=== PATIENT | female | born 1960 | race Caucasian/White ===

== ENCOUNTER 2016-05-07 10:13 | Outpatient (RCR) | payer OTHER ==
[2016-04-10 10:31] LABS: BASOPHILS % (AUTO) 1 % (0-10); EOSINOPHILS % (AUTO) 1 % (0-10); LYMPHOCYTES # (AUTO) 1.3 X 10^3 (1.0-4.0); LYMPHOCYTES % (AUTO) 36 % (12-44); MEAN CORPUSCULAR HEMOGLOBIN 30 PG (25-34); MEAN CORPUSCULAR HGB CONC 32 G/DL (32-36); MEAN CORPUSCULAR VOLUME 93 FL (80-99); MEAN PLATELET VOLUME 9.7 FL (7.4-10.4); MONOCYTES # (AUTO) 0.3 X 10^3 (0.0-1.0); MONOCYTES % (AUTO) 7 % (0-12); NEUTROPHILS # (AUTO) 1.9 X 10^3 (1.8-7.8); NEUTROPHILS % (AUTO) 55 % (42-75); PLATELET COUNT 198 10^3/uL (130-400); RED CELL DISTRIBUTION WIDTH 12.7 % (10.0-14.5); WHITE BLOOD COUNT 3.5 10^3/uL (4.3-11.0)
[2016-04-10 11:13] LABS: ALANINE AMINOTRANSFERASE 16 U/L (0-55); ANION GAP 9 MMOL/L (5-14); ASPARTATE AMINO TRANSFERASE 20 U/L (5-34); BILIRUBIN,TOTAL 0.4 MG/DL (0.1-1.0); BLOOD UREA NITROGEN 16 MG/DL (7-18); BUN/CREATININE RATIO 21; CALCIUM 9.1 MG/DL (8.5-10.1); CARBON DIOXIDE 25 MMOL/L (21-32); CHLORIDE 108 MMOL/L (98-107); CREATININE SERUM 0.75 MG/DL (0.60-1.30); GFR ESTIMATED > 60; GLUCOSE 89 MG/DL (70-105); POTASSIUM 4.5 MMOL/L (3.6-5.0); SODIUM 142 MMOL/L (135-145); TOTAL PROTEIN 7.5 G/DL (6.4-8.2)
[2016-04-17 11:31] LABS: BASOPHILS % (AUTO) 1 % (0-10); EOSINOPHILS % (AUTO) 1 % (0-10); LYMPHOCYTES # (AUTO) 1.2 X 10^3 (1.0-4.0); LYMPHOCYTES % (AUTO) 28 % (12-44); MEAN CORPUSCULAR HEMOGLOBIN 31 PG (25-34); MEAN CORPUSCULAR HGB CONC 33 G/DL (32-36); MEAN CORPUSCULAR VOLUME 93 FL (80-99); MEAN PLATELET VOLUME 10.2 FL (7.4-10.4); MONOCYTES # (AUTO) 0.3 X 10^3 (0.0-1.0); MONOCYTES % (AUTO) 6 % (0-12); NEUTROPHILS # (AUTO) 2.8 X 10^3 (1.8-7.8); NEUTROPHILS % (AUTO) 65 % (42-75); PLATELET COUNT 202 10^3/uL (130-400); RED BLOOD COUNT 3.97 10^6/uL (4.35-5.85); RED CELL DISTRIBUTION WIDTH 12.4 % (10.0-14.5); WHITE BLOOD COUNT 4.4 10^3/uL (4.3-11.0)
[2016-04-21 07:19] LABS: DIL RUSSELL VIPER VENOM SCREEN 1.12 ratio (0.00-1.20); LUPUS ANTICOAGULANT PTT 46.7 Seconds (24.4-41.7)
[2016-04-21 07:21] LABS: INHIBITOR SCREEN PT Positive; LAPTT 1:1 MIX ROOM TEMP 54.4 Seconds (24.4-41.7); PTT 1:1 MIX INCUBATED 54.6 Seconds (20.6-39.2); PTT 1:1 MIX ROOM TEMP 46.9 Seconds (20.6-39.2); THROMBIN TIME PT 16.1 Seconds (15.0-20.8)
[2016-04-21 07:22] LABS: LAPTT 1:1 MIX INCUBATED 63.6 Seconds (24.4-41.7)
[2016-04-21 07:23] LABS: INR REF RML 1.1 (0.7-1.3); PT REF RML 14.6 SEC (10.5-15.7); PTT LUPUS 40.9 H SEC (20.6-39.2)
[2016-04-23 07:50] LABS: CLIN PATHOLOGY REPORT FOOTNOTE; HEXAGONAL PHOSPHOLIPID Positive (Negative)
[2016-05-07 10:37] LABS: BASOPHILS % (AUTO) 1 % (0-10); EOSINOPHILS # (AUTO) 0.1 10^3/uL (0.0-0.3); EOSINOPHILS % (AUTO) 2 % (0-10); LYMPHOCYTES # (AUTO) 1.2 X 10^3 (1.0-4.0); LYMPHOCYTES % (AUTO) 31 % (12-44); MEAN CORPUSCULAR HEMOGLOBIN 30 PG (25-34); MEAN CORPUSCULAR HGB CONC 33 G/DL (32-36); MEAN CORPUSCULAR VOLUME 91 FL (80-99); MEAN PLATELET VOLUME 10.1 FL (7.4-10.4); MONOCYTES # (AUTO) 0.3 X 10^3 (0.0-1.0); MONOCYTES % (AUTO) 8 % (0-12); NEUTROPHILS # (AUTO) 2.3 X 10^3 (1.8-7.8); NEUTROPHILS % (AUTO) 59 % (42-75); PLATELET COUNT 230 10^3/uL (130-400); RED BLOOD COUNT 3.97 10^6/uL (4.35-5.85); RED CELL DISTRIBUTION WIDTH 12.6 % (10.0-14.5); RETICULOCYTE % 0.63 % (0.50-2.40); WHITE BLOOD COUNT 3.9 10^3/uL (4.3-11.0)
[2016-05-07 11:41] LABS: ERYTHROCYTE SEDIMENTATION RATE 29 MM/HR (0-30)
[2016-05-07 11:54] LABS: ALANINE AMINOTRANSFERASE 14 U/L (0-55); ANION GAP 8 MMOL/L (5-14); ASPARTATE AMINO TRANSFERASE 25 U/L (5-34); BILIRUBIN,TOTAL 0.4 MG/DL (0.1-1.0); BLOOD UREA NITROGEN 12 MG/DL (7-18); BUN/CREATININE RATIO 14; CALCIUM 9.4 MG/DL (8.5-10.1); CARBON DIOXIDE 24 MMOL/L (21-32); CHLORIDE 104 MMOL/L (98-107); CREATININE SERUM 0.84 MG/DL (0.60-1.30); GFR ESTIMATED > 60; GLUCOSE 81 MG/DL (70-105); LACTATE DEHYDROGENASE 218 U/L (125-220); POTASSIUM 4.4 MMOL/L (3.6-5.0); SODIUM 136 MMOL/L (135-145); TOTAL PROTEIN 7.7 G/DL (6.4-8.2)
== END 2016-07-09 | disposition home or self-care (01) ==
LOC: ONC 10:13
PROVIDERS: ATTEND Internal Medicine Hematology & Oncology
DX: D70.8 Other neutropenia (principal); B19.20 Unspecified viral hepatitis C without hepatic coma; I10 Essential (primary) hypertension; M32.10 Systemic lupus erythematosus, organ or system involvement unspecified; R76.0 Raised antibody titer; Z86.19 Personal history of other infectious and parasitic diseases; Z86.711 Personal history of pulmonary embolism; Z79.899 Other long term (current) drug therapy
CPT/HCPCS: 36415; 80053; 83615; 85025; 85045; 85597; 85610; 85613; 85652; 85670; 85705; 85730; 86146; 86147; 99213

== ENCOUNTER → 2017-12-20 | Outpatient (CLI) | payer OTHER ==
--- NOTE | 2017-12-20 19:46 | Diagnostic Imaging Report ---
INDICATION: Palpable lump along the medial aspect of the left breast. COMPARISON: Comparison is made with prior mammograms from 12/13/2015. TECHNIQUE: 2D and 3D bilateral diagnostic mammography was performed with computer-aided detection (CAD) system. A BB marker was placed at the area of palpable abnormality in the medial left breast. FINDINGS: Bilateral breast implants are noted. There has been development of silicone noted along the lateral and medial aspect of the left breast consistent with extracapsular rupture. This is new since prior study. This may account for the area of palpable abnormality in the medial left breast. Focal contour bulge along the inferior and medial aspect of the right implant is noted and similar to prior exam. No suspicious calcifications are seen. The axillae are unremarkable. IMPRESSION: Findings consistent with extracapsular rupture of the left breast implant, likely accounting for the palpable abnormality medially. Ramesh so, further evaluation of this area with ultrasound is recommended. ACR BI-RADS Category 0: Incomplete. (Needs additional imaging evaluation). Result letter will be mailed to the patient. Note: At least 10% of breast cancer is not imaged by mammography. Dictated by: Dictated on workstation # [id number]
--- NOTE | 2017-12-20 19:48 | Diagnostic Imaging Report ---
INDICATION: Palpable lump in the medial left breast. Correlation is made with diagnostic mammogram earlier the same day. FINDINGS: Sonographic interrogation of the area of palpable abnormality in the upper-inner left breast was performed. There are hypoechoic masses with posterior acoustic enhancement present at the areas of palpable abnormality, largest approximately 7 mm in size. These most likely represent small cysts or free silicone, when correlating with the mammogram. No solid mass is seen. IMPRESSION: Cysts versus free silicone in the medial left breast at the area of palpable abnormality. Mammogram did show findings consistent with extracapsular implant rupture both on the medial and lateral side. No suspicious abnormality is identified. Plastic surgery consultation for implant rupture could be performed. ACR BI-RADS Category 2: Benign findings. Dictated by: Dictated on workstation # [id number]
== END ==
LOC: RAD 14:01
PROVIDERS: ATTEND Nurse Practitioner
DX: N63.20 Unspecified lump in the left breast, unspecified quadrant (principal)
CPT/HCPCS: 76641; 77066